=== PATIENT | female | born 1985 | race Caucasian/White ===

== ENCOUNTER 2017-01-01 10:47 | Inpatient (IN) | payer BC ==
[~2017-01-01] VITALS: Ht 177.8 cm; Wt 92.3 kg
[~2017-01-01 10:47] MED LIST: PRENATAL VITAMI1 TA5 PO; PRENATAL1 TA1 PO
[2017-02-23] VITALS (28 sets, daily range): BP systolic 96–140; BP diastolic 52–82; PULSE 73–111; TEMP 97.3–98.2
[2017-02-23] MEDS ORDERED: ZOVIRAX 200MG200 MG (06:47)
[2017-02-23 08:34] LABS: BASO % 0.4 % (0.0-2.0); EOS # 0.1 (0.0-0.7); EOS % 1.2 % (0-4.0); GRAN % 70.6 % (42.2-75.2); LYMPH # 2.3 (1.2-3.4); LYMPH % 20.2 % (20.0-51.0); MEAN CELL VOLUME 93 fl (80.0-100.0); MEAN CORPUSCULAR HGB CONC 34 g/dl (33.0-37.0); MEAN PLATELET VOLUME 9.7 fl (7.4-10.4); MONO # 0.7 (0.1-0.6); MONO % 6.4 % (1.7-9.3); PLATELET COUNT 220 K/mm3 (130-400); RED BLOOD COUNT 3.64 M/mm3 (4.10-5.30); REDCELL DISTRIBUTION WIDTH-CV 13.2 % (11.5-14.5); WHITE BLOOD COUNT 11.3 K/mm3 (4.8-10.8)
[2017-02-23 08:37] LABS: HEMOGLOBIN 11.7 g/dl (12.5-16.0); MEAN CORPUSCULAR HEMOGLOBIN 32 pg (27.0-31.0)
[2017-02-24 08:06] VITALS: BP 105/64; PULSE 64; TEMP 98.2
[2017-02-24 13:07] VITALS: BP 118/67; PULSE 73; TEMP 97.9
== END 2017-02-24 14:30 | disposition home or self-care (01) | DRG 775 ==
LOC: LDRO 02-19 10:47 → EDSTATUS 02-19 14:06 → LDR 02-23 07:00 → OB 02-23 14:31
PROVIDERS: Student in an Organized Health Care Education/Training Program
PROC: 10E0XZZ Delivery of Products of Conception, External Approach (ICD-10-PCS; principal; 2017-02-23)
PROC: 3E033VJ Introduction of Other Hormone into Peripheral Vein, Percutaneous Approach (ICD-10-PCS; 2017-02-23)
DX: O40.3XX0 Polyhydramnios, third trimester, not applicable or unspecified (principal); O48.0 Post-term pregnancy; O69.81X0 Labor and delivery complicated by cord around neck, without compression, not applicable or unspecified; Z37.0 Single live birth; Z3A.40 40 weeks gestation of pregnancy
CPT/HCPCS: J2590; J2795; J7120

== ENCOUNTER 2023-03-12 20:19 | Inpatient (IN) | payer OTHER ==
[~2023-03-12] VITALS: Ht 182.9 cm; Wt 90.5 kg
[~2023-03-12 20:19] MED LIST changes: +ZOVIRAX 200MG200 MG
--- NOTE | 2023-03-12 20:25 | NUR ---
Ambulatory to unit for labor assessment, accompanied by spouse. Pt reports SROM @ 1930 with clear fluid. Oriented to room, monitor, plan of care.
[2023-03-12 20:35] VITALS: BP 127/85; PULSE 86; TEMP 97.8
[2023-03-12 21:44] LABS: BASO % 0.4 % (0.0-2.0); EOS # 0.2 K/mm3 (0.0-0.7); EOS % 2.1 % (0.0-4.0); GRAN # 5.7 K/mm3 (1.4-6.5); GRAN % 67.8 % (42.2-75.2); HEMOGLOBIN 12.2 g/dl (12.5-16.0); LYMPH % 23.2 % (20.0-51.0); MEAN CELL VOLUME 94 fl (80.0-100.0); MEAN CORPUSCULAR HEMOGLOBIN 33 pg (27-31); MEAN CORPUSCULAR HGB CONC 35 g/dl (33.0-37.0); MEAN PLATELET VOLUME 9.5 fl (7.4-10.4); MONO # 0.5 K/mm3 (0.1-0.6); MONO % 6.1 % (1.7-9.3); PLATELET COUNT 228 K/mm3 (130-400); RED BLOOD COUNT 3.75 M/mm3 (4.10-5.30); REDCELL DISTRIBUTION WIDTH-CV 13.4 % (11.5-14.5)
[2023-03-12 21:45] VITALS: BP 123/69; PULSE 74
[2023-03-12 21:46] LABS: HEMATOCRIT 35.3 % (37.0-47.0)
--- NOTE | 2023-03-12 21:53 | NUR ---
Off monitor, up to ambulate. Intermittent monitoring explained
--- NOTE | 2023-03-12 22:48 | NUR ---
Back to bed for monitoring. Pt reports no change in uterine activity. supportive @ bedside.
[2023-03-12 22:55] VITALS: BP 121/69; PULSE 67
[2023-03-12] MEDS ORDERED: PRENATAL TABLET PO (23:49)
[2023-03-13] VITALS (34 sets, daily range): BP systolic 103–145; BP diastolic 63–107; PULSE 61–91; TEMP 98–98.3
--- NOTE | 2023-03-13 00:19 | NUR ---
Pt resting. Denies increase in ctx discomfort
--- NOTE | 2023-03-13 04:15 | NUR ---
Pt reports some of the contractions are pretty strong. Texting on phone. Social
--- NOTE | 2023-03-13 09:40 | NUR ---
0850 DR CARMEN ON UNIT REVIEWING FHR. [address] CARMEN /0. THIS RN REPOSITIONS PT INTO RIGHT LATERAL WITH LEFT LEG IN STIRRUP. DR CARMEN REMAINS ON UNIT FOR DELIVERY 09 DR CARMEN SVE /+2. THIS RN SETS UP FOR DELIVERY. Trevor AJ RN IN ROOM FOR NURSERY. Nargis BISHOP RN IN ROOM FOR CHARGE NURSE. 0935 PT PUSHES TWICE WITH SINGLE CONTRACTION. 0935 SPONTANEOUS VAGINAL DELIVERY OF VIABLE FEMALE INFANT. INFANT BULB SUCTIONED AND STIMULATED. INFANT ON MOTHER'S ABDOMEN. CORD CLAMPED BY DR CARMEN AND CUT BY FOB. TO MOTHER'S CHEST FOR SKIN TO SKIN. 0940 SPONTANEOUS DELIVERY OF PLACENTA. PITOCIN BOLUS STARTED PER PROTOCOL. PERINEUM INTACT. FUNDAL MASSAGE DONE BY THIS RN. FUNDUS IS FIRM/MIDLINE. SMALL AMT OF BLEEDING NOTED. PERICARE DONE. ICE PACK PAD PLACED. SAFETY PRECAUTIONS AND PLAN OF CARE DISCUSSED. PT VERBALIZES UNDERSTANDING.
--- NOTE | 2023-03-13 13:00 | NUR ---
THIS RN USES [facility] TO TRANSPORT PT TO BATHROOM. PT NOT ABLE TO VOID AT THIS TIME. PERICARE DONE. CLEAN PAD AND UNDERWEAR PLACED. CHANGED INTO CLEAN GOWN. THIS SURGICAL PROCESSOR PT TO ROOM 208 USING [facility]. PT ORIENTED TO ROOM. CALL LIGHT WITHIN REACH.
[2023-03-14 01:13] VITALS: BP 117/73; PULSE 71; TEMP 98.1
[2023-03-14 04:45] VITALS: BP 129/81; PULSE 72; TEMP 97.8
[2023-03-14] MEDS ORDERED: IBU800 M1 PO (09:12)
[2023-03-14 09:18] VITALS: BP 117/73; PULSE 63; TEMP 97.7
--- NOTE | 2023-03-14 10:21 | NUR ---
Initial visit; Patient thanked Community Resource Officer for offering congratulations and God's blessings for the of her daughter. Community Resource Officer thanked Mom for choosing [facility].
== END 2023-03-14 14:15 | disposition home or self-care (01) | DRG 806 ==
LOC: LDRO 20:19 → OB 20:55 → LDR 20:55 → OB 03-13 13:36
PROVIDERS: Obstetrics & Gynecology; ADMIT Student in an Organized Health Care Education/Training Program
PROC: 10E0XZZ Delivery of Products of Conception, External Approach (ICD-10-PCS; principal; 2023-03-13)
PROC: 3E033VJ Introduction of Other Hormone into Peripheral Vein, Percutaneous Approach (ICD-10-PCS; 2023-03-13)
DX: O98.52 Other viral diseases complicating childbirth (principal); B00.89 Other herpesviral infection; Z37.0 Single live birth; O43.193 Other malformation of placenta, third trimester; O69.2XX0 Labor and delivery complicated by other cord entanglement, with compression, not applicable or unspecified; Z3A.39 39 weeks gestation of pregnancy
CPT/HCPCS: J2590; J2795; J7120

== ENCOUNTER → 2024-01-31 | Outpatient (CLI) | payer OTHER ==
[~2024-01-31] MED LIST changes: +IBU800 M1 PO; +PRENATAL TABLET PO
== END ==
LOC: MC.RAD 07:28
DX: Z12.31 Encounter for screening mammogram for malignant neoplasm of breast (principal)